=== PATIENT | male | born 1990 | race Caucasian/White ===

== ENCOUNTER 2017-01-07 15:47 | Emergency (ER) | payer SELFPAY ==
[2017-01-07 16:06] VITALS: BP 131/105
[2017-01-07] MEDS ORDERED: Tetracaine 0.5% OPTH.SOL 4 ML* 1 DROP BTL LEFT EYE ONE (16:12)
[2017-01-07] MEDS ORDERED: Fluorescein Sodium TOPICAL* 1 MG TEST OPHTHALMIC ONE (16:13)
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
== END 2017-01-07 16:32 | disposition home or self-care (01) ==
LOC: UCCORT 15:47
DX: T26.92XA Corrosion of left eye and adnexa, part unspecified, initial encounter (principal); T54.91XA Toxic effect of unspecified corrosive substance, accidental (unintentional), initial encounter; F12.90 Cannabis use, unspecified, uncomplicated; F17.210 Nicotine dependence, cigarettes, uncomplicated
CPT/HCPCS: 99212; A9270-GY; G0463

== ENCOUNTER 2017-03-17 10:57 | Emergency (ER) | payer OTHER ==
[2017-03-17 12:59] VITALS: BP 148/77
[2017-03-17] MEDS ORDERED: Tetan/Diph/Pertus SYR(Tdap)* 0.5 ML SYR(BOOSTRIX) use SYR IM ONE (13:19)
--- NOTE | 2017-03-17 13:28 | UC ---
Hand/Wrist HPI - HPI Summary HPI Summary: While outdoors at home today, pt was petting a stray cat and the cat suddenly bit his R arm and was acting aggressive. Pt says he had to try hard to get the cat to run away. Is worried about rabies. - History Of Current Complaint Chief Complaint: LORENZOkin Stated Complaint: CAT BITE Time Seen by Provider: 03/17/17 13:08 Hx Obtained From: Patient ?: No Onset/Duration: Sudden Onset Severity Initially: Mild Severity Currently: Mild Character Of Pain: Sharp Aggravating Factor(s): Movement Alleviating Factor(s): Nothing Associated Signs And Symptoms: Positive: Negative Related History: Dominant Hand Right - Allergies/Home Medications Allergies/Adverse Reactions: Allergies Allergy/AdvReac Type Severity Reaction Status Date / Time seasonal Allergy Congestion Uncoded 03/17/17 12:59 PMH/Surg Hx/FS Hx/Imm Hx Psychological History: Depression - Surgical History Surgical History: None - Family History Known Family History: Negative: Diabetes - Social History Lives: Alone Alcohol Use: Occasionally Substance Use Type: Marijuana Substance Use Comment - Amount & Last Used: occasional use-last February 2017 Smoking Status (MU): Light Every Day Tobacco Smoker Type: Cigarettes Amount Used/How Often: occasional - Immunization History Most Recent Tetanus Shot: unknown Review of Systems Constitutional: Negative Skin: Other - scratches, bite to R arm Eyes: Negative ENT: Negative Respiratory: Negative Cardiovascular: Negative Gastrointestinal: Negative Genitourinary: Negative Motor: Negative Neurovascular: Negative Musculoskeletal: Negative Neurological: Negative Psychological: Negative Is Patient Immunocompromised?: No All Other Systems Reviewed And Are Negative: Yes Physical Exam Triage Information Reviewed: Yes Appearance: Well-Appearing, No Pain Distress, Well-Nourished Vital Signs: Initial Vital Signs Temp 97.9 F 03/17/17 12:51 Pulse 99 03/17/17 12:51 Resp 18 03/17/17 12:51 BP 148/77 03/17/17 12:51 Vital Signs Reviewed: Yes Eye Exam: Normal Eyes: Positive: Conjunctiva Clear ENT Exam: Normal ENT: Positive: Normal ENT inspection, Hearing grossly normal, Pharynx normal, TM dull Dental Exam: Normal Neck exam: Normal Neck: Positive: Supple, Nontender, No Lymphadenopathy Respiratory Exam: Normal Respiratory: Positive: Chest non-tender, Lungs clear, Normal breath sounds, No respiratory distress, No accessory muscle use Cardiovascular Exam: Normal Cardiovascular: Positive: RRR, No Murmur Musculoskeletal: Positive: Strength Intact, ROM Intact Neurological Exam: Normal Psychological Exam: Normal Skin Exam: Other - few linear scratches, two main PWs without surrounding erythema, streaking, or drainage on R forearm/wrist Hand/Wrist Course/Dx - Differential Dx/Diagnosis Provider Diagnoses: cat bite to R wrist Discharge - Discharge Plan Condition: Stable Disposition: HOME Prescriptions: Amoxicillin/Clavulanate TAB* [Augmentin TAB 875*] 875 mg PO BID #10 tab Patient Education Materials: Animal Bite (ED) Referrals: No Primary Care Phys,NOPCP [Primary Care Provider] - Additional Instructions: If you have significant redness, swelling, or streaking from the wound, please go to the hospital for another evaluation. We will alert the [facility] about your bite. You can also call them if you still have concerns about rabies. If you need rabies shots , you will go to the [facility] for rabies antibodies as well as the rabies vaccine.
== END 2017-03-17 13:34 | disposition home or self-care (01) ==
LOC: UCCORT 10:57
DX: S61.531A Puncture wound without foreign body of right wrist, initial encounter (principal); S60.811A Abrasion of right wrist, initial encounter; W55.01XA Bitten by cat, initial encounter; Y93.89 Activity, other specified; Y92.9 Unspecified place or not applicable; Z23 Encounter for immunization; F32.9 Major depressive disorder, single episode, unspecified; F12.90 Cannabis use, unspecified, uncomplicated; Z72.0 Tobacco use
CPT/HCPCS: 90715; 99212; G0463